=== PATIENT | male | born 1950 | race Caucasian/White ===

== ENCOUNTER 2019-02-18 22:17 | Observation (INO) | payer OTHER ==
[2019-02-18] MEDS ORDERED: NA CHLORIDE 0.9% 1,000 ML ONE (22:54)
[2019-02-18 23:03] LABS: Absolute Lymphocytes (CBC) 1.5 K/uL (0.7-4.9); Absolute Monocytes 0.6 K/uL (0.1-1.3); Absolute Neutrophil 4.5 K/uL (1.8-8.0); Basophils % 0.8 % (0-1.3); Eosinophils % 3.5 % (0-4.4); Hematocrit 39.1 % (39.6-49.0); Lymphocytes % 21.8 % (15.3-44.8); MPV 9.2 fL (7.6-11.3)
[2019-02-18 23:11] LABS: Urine Blood TRACE (NEG); Urine Glucose NEGATIVE (NEG); Urine Protein 3+ (NEG); Urine pH 6.5 (5.0-7.0)
[2019-02-18 23:34] LABS: ALT/SGPT 28 U/L (12-78); AST/SGOT 20 U/L (15-37); Albumin 3.9 g/dL (3.4-5.0); Alkaline Phosphatase 45 U/L (45-117); BUN Blood Urea Nitrogen 14 mg/dL (7-18); Bicarbonate 27 mmol/L (21-32); Bilirubin Direct 0.1 mg/dL (0-0.2); Bilirubin Total 0.5 mg/dL (0.2-1.0); Glucose Level 96 mg/dL (74-106); Lipase 67 U/L (73-393); Magnesium 1.5 mg/dL (1.8-2.4); NT PRO-BNP 525 pg/mL (<125); Potassium 3.2 mmol/L (3.5-5.1); Protein, Total 7.2 g/dL (6.4-8.2); Sodium Level 140 mmol/L (136-145); Troponin (Emerg Dept Use Only) < 0.02 ng/mL (0.0-0.045)
[2019-02-18] MEDS ORDERED: ASPIRIN EC 81 MG TAB PO ONE (23:38)
[2019-02-18] MEDS ORDERED: METOPROLOL TAR 25 MG TAB ONE (23:38)
[2019-02-18] MEDS ORDERED: FAMOTIDINE 20 MG/2 ML VIAL IV ONE (23:38)
--- NOTE | 2019-02-18 23:39 | ER ---
Nurse's Notes [facility] Name: Keven Rodriguez Age: 68 yrs Sex: Male : 1950 Arrival Date: 02/18/2019 Time: 22:[address] Private MD: Diagnosis: Chest pain, unspecified;Palpitations;Type 2 diabetes mellitus;Hypokalemia;Hypomagnesemia Presentation: 02/18 22:26 Presenting complaint: Patient states: for the past 4 days his HR has been elevated. aa1 States his pulse is normally in the 50's and it has recently been in the low 100's. Denies pain. States, "I can just feel my heart beating in my face.". Transition of care: patient was not received from another setting of care. Onset of symptoms was February 15, 2019. Risk Assessment: Do you want to hurt yourself or someone else? Patient reports no desire to harm self or others. Initial Sepsis Screen: Does the patient meet any 2 criteria? HR > 90 bpm. Does the patient have a suspected source of infection? No. Patient's initial sepsis screen is negative. Care prior to arrival: None. 22:26 Method Of Arrival: Ambulatory aa1 22:26 Acuity: JOSE 3 aa1 Triage Assessment: 22:35 General: Appears in no apparent distress. comfortable, Behavior is calm, cooperative, aa1 appropriate for age. Pain: Denies pain. Historical: - Allergies: 22:35 No Known Allergies; aa1 - Home Meds: 22:35 magnesium oxide 400 mg Oral tab daily [Active]; omeprazole 20 mg Oral TbEC daily aa1 [Active]; amlodipine 10 mg tab 1 tab once daily [Active]; losartan-hydrochlorothiazide 100-25 mg oral tab 1 tab once daily [Active]; hydralazine 10 mg Oral tab 1 tab 2 times per day [Active]; metformin 1,000 mg Oral tab 1 tab 2 times per day [Active]; Ferrous Gluconate Oral [Active]; aspirin 81 mg Oral TbEC 1 tab once daily [Active]; rosuvastatin 10 mg oral tab 1 tab once daily [Active]; metoprolol succinate 200 mg oral Tb24 1 tab once daily [Active]; Breo Ellipta 200-25 mcg/dose inhalation dsdv 1 puff once daily [Active]; - PMHx: 22:35 Diabetes - NIDDM; Hypertension; bladder cancer; aa1 - PSHx: 22:35 cystectomy w/urostomy; Heart stents; Appendectomy; aa1 - Immunization history:: Flu vaccine is up to date. - Social history:: Smoking status: Patient uses tobacco products, smokes one pack cigarettes per day. - Ebola Screening: : No symptoms or risks identified at this time. - Family history:: not pertinent. Screenin:39 Abuse screen: Denies threats or abuse. Nutritional screening: No deficits noted. tl2 Tuberculosis screening: No symptoms or risk factors identified. Fall Risk None identified. Assessment: 22:39 General: Appears in no apparent distress. comfortable, Behavior is calm, cooperative, tl2 appropriate for age. Pain: Denies pain. Neuro: Level of Consciousness is awake, alert, obeys commands, Oriented to person, place, time, situation. Cardiovascular: Reports palpitations, Denies chest pain, shortness of breath, Rhythm is sinus rhythm. Respiratory: Airway is patent Respiratory effort is even, unlabored, Respiratory pattern is regular, symmetrical. GI: No signs and/or symptoms were reported involving the gastrointestinal system. : urostomy placed, draining clear yellow urine. Derm: Skin is pink, warm \\T\\ dry. 02/19 00:00 Reassessment: Patient appears in no apparent distress at this time. No changes from tl2 previously documented assessment. Patient and/or family updated on plan of care and expected duration. Pain level reassessed. Patient is alert, oriented x 3, equal unlabored respirations, skin warm/dry/pink. 01:00 Reassessment: Patient appears in no apparent distress at this time. Patient and/or tl2 family updated on plan of care and expected duration. Pain level reassessed. Patient is alert, oriented x 3, equal unlabored respirations, skin warm/dry/pink. awaiting admission orders Patient denies pain at this time. 02:14 Reassessment: Patient appears in no apparent distress at this time. Patient and/or tl2 family updated on plan of care and expected duration. Pain level reassessed. Patient is alert, oriented x 3, equal unlabored respirations, skin warm/dry/pink. pt stable for transport to floor. Vital Signs: 02/18 22:35 BP 181 / 82; Pulse 97; Resp 18; Temp 97.5; Pulse Ox 96% ; Weight 112.49 kg; aa1 23:14 BP 143 / 66; Pulse 85; Resp 18; Pulse Ox 99% on R/A; tl2 02/19 01:00 BP 129 / 87; Pulse 77; Resp 20; Pulse Ox 96% on R/A; tl2 Vitals: 01:00 Cardiac Rhythm Assessment Sinus rhythm. tl2 ED Course: 02/18 22:19 Patient arrived in ED. aa1 22:20 Raciel Curiel MD is Attending Physician. ila 22:23 Mariely Morrissey RN is Primary Nurse. tl2 22:30 Triage completed. aa1 22:35 Arm band placed on right wrist. aa1 22:38 Inserted saline lock: 20 gauge in right antecubital area, using aseptic technique. tl2 Blood collected. 22:39 Patient has correct armband on for positive identification. Placed in gown. Bed in low tl2 position. Call light in reach. Side rails up X 1. Adult w/ patient. 22:43 XRAY Chest (1 view) In Process Unspecified. EDMS 22:44 X-ray completed. Portable x-ray completed in exam room. Patient tolerated procedure az well. 23:37 Kate Kothari MD is Hospitalizing Provider. [facility] 02/19 00:28 CT Aorta for Dissection In Process Unspecified. EDMS 02:14 No provider procedures requiring assistance completed. Patient admitted, IV remains in tl2 place. Administered Medications: 02/18 22:57 Drug: NS 0.9% 1000 ml Route: IV; Rate: 125 ml/hr; Site: right antecubital; tl2 02/19 02:15 Follow up: IV Status: Infusion continued upon admission tl2 02/18 23:30 Drug: Aspirin 162 mg Route: PO; tl2 02/19 02:15 Follow up: Response: No adverse reaction 2 02/18 23:30 Drug: Lopressor 25 mg Route: PO; tl2 02/19 02:15 Follow up: Response: No adverse reaction 2 02/18 23:30 Drug: Pepcid 20 mg Route: IVP; Site: right antecubital; tl2 02/19 02:16 Follow up: Response: No adverse reaction 2 00:29 Drug: Potassium Effervescent Tablet 25 mEq Route: PO; tl2 02:16 Follow up: Response: No adverse reaction tl2 00:29 Drug: Magnesium Sulfate 2 grams Route: IVPB; Infused Over: 2 hrs; Site: right tl2 antecubital; 02:16 Follow up: IV Status: Completed infusion; IV Intake: 50ml tl2 Intake: 02:16 IV: 50ml; Total: 50ml. tl2 Outcome: 02/18 23:39 Decision to Hospitalize by Provider. [facility] 02/19 02:14 Admitted to Tele accompanied by nurse, via wheelchair, room 425, with chart, Report tl2 called to SAIMA Solis Condition: stable Discharge instructions given to patient, Instructed on the need for admit. 02:16 Patient left the ED. tl2 Signatures: Dispatcher [employer] EDLashawn Lynne RN RN aa1 Raciel Curiel MD MD cha Knox, Taylor, RN RN tl2 Kanika Juares
--- NOTE | 2019-02-18 23:39 | EDPHYS ---
Physician Documentation [facility] Name: Keven Rodriguez Age: 68 yrs Sex: Male : 1950 Arrival Date: 02/18/2019 Time: 22:[address] Private MD: Raciel Dawson HPI: 02/18 23:20 This 68 yrs old Male presents to ER via Ambulatory with complaints of racing ila heart, palpitatiuons and chest pain. 23:20 The patient or guardian reports chest pain that is located primarily in the anterior ila chest wall. Onset: 5 day(s) ago. The patient presents with a history of heart racing. Context: The symptoms occur at rest. Onset: The symptoms/episode began/occurred 5 day(s) ago. Modifying factors: The symptoms are aggravated by nothing. The symptoms are alleviated by nothing. The pain does not radiate. Associated signs and symptoms: The patient has no apparent associated signs or symptoms. Historical: - Allergies: 22:35 No Known Allergies; aa1 - Home Meds: 22:35 magnesium oxide 400 mg Oral tab daily [Active]; omeprazole 20 mg Oral TbEC daily aa1 [Active]; amlodipine 10 mg tab 1 tab once daily [Active]; losartan-hydrochlorothiazide 100-25 mg oral tab 1 tab once daily [Active]; hydralazine 10 mg Oral tab 1 tab 2 times per day [Active]; metformin 1,000 mg Oral tab 1 tab 2 times per day [Active]; Ferrous Gluconate Oral [Active]; aspirin 81 mg Oral TbEC 1 tab once daily [Active]; rosuvastatin 10 mg oral tab 1 tab once daily [Active]; metoprolol succinate 200 mg oral Tb24 1 tab once daily [Active]; Breo Ellipta 200-25 mcg/dose inhalation dsdv 1 puff once daily [Active]; - PMHx: 22:35 Diabetes - NIDDM; Hypertension; bladder cancer; aa1 - PSHx: 22:35 cystectomy w/urostomy; Heart stents; Appendectomy; aa1 - Immunization history:: Flu vaccine is up to date. - Social history:: Smoking status: Patient uses tobacco products, smokes one pack cigarettes per day. - Ebola Screening: : No symptoms or risks identified at this time. - Family history:: not pertinent. ROS: 23:20 Constitutional: Negative for fever, chills, and weight loss, Eyes: Negative for injury, ila pain, redness, and discharge, ENT: Negative for injury, pain, and discharge, Neck: Negative for injury, pain, and swelling, Abdomen/GI: Negative for abdominal pain, nausea, vomiting, diarrhea, and constipation, Back: Negative for injury and pain, : Negative for injury, bleeding, discharge, and swelling, MS/Extremity: Negative for injury and deformity, Skin: Negative for injury, rash, and discoloration, Neuro: Negative for headache, weakness, numbness, tingling, and seizure, Psych: Negative for depression, anxiety, suicide ideation, homicidal ideation, and hallucinations, Allergy/Immunology: Negative for hives, rash, and allergies, Endocrine: Negative for neck swelling, polydipsia, polyuria, polyphagia, and marked weight changes, Hematologic/Lymphatic: Negative for swollen nodes, abnormal bleeding, and unusual bruising. 23:20 Cardiovascular: Positive for chest pain, palpitations. 23:20 Respiratory: Positive for cough, shortness of breath, at rest. Exam: 23:20 Constitutional: This is a well developed, well nourished patient who is awake, alert, ila and in no acute distress. Head/Face: Normocephalic, atraumatic. Eyes: Pupils equal round and reactive to light, extra-ocular motions intact. Lids and lashes normal. Conjunctiva and sclera are non-icteric and not injected. Cornea within normal limits. Periorbital areas with no swelling, redness, or edema. ENT: Nares patent. No nasal discharge, no septal abnormalities noted. Tympanic membranes are normal and external auditory canals are clear. Oropharynx with no redness, swelling, or masses, exudates, or evidence of obstruction, uvula midline. Mucous membranes moist. Neck: Trachea midline, no thyromegaly or masses palpated, and no cervical lymphadenopathy. Supple, full range of motion without nuchal rigidity, or vertebral point tenderness. No Meningismus. Chest/axilla: Normal chest wall appearance and motion. Nontender with no deformity. No lesions are appreciated. Cardiovascular: Regular rate and rhythm with a normal S1 and S2. No gallops, murmurs, or rubs. Normal PMI, no JVD. No pulse deficits. Abdomen/GI: Soft, non-tender, with normal bowel sounds. No distension or tympany. No guarding or rebound. No evidence of tenderness throughout. Back: No spinal tenderness. No costovertebral tenderness. Full range of motion. Male : Normal genitalia with no discharge or lesions. Skin: Warm, dry with normal turgor. Normal color with no rashes, no lesions, and no evidence of cellulitis. MS/ Extremity: Pulses equal, no cyanosis. Neurovascular intact. Full, normal range of motion. Neuro: Awake and alert, GCS 15, oriented to person, place, time, and situation. Cranial nerves II-XII grossly intact. Motor strength 5/5 in all extremities. Sensory grossly intact. Cerebellar exam normal. Normal gait. Psych: Awake, alert, with orientation to person, place and time. Behavior, mood, and affect are within normal limits. 23:20 Respiratory: the patient does not display signs of respiratory distress, Respirations: normal, Breath sounds: rhonchi, wheezing: expiratory is scattered. Vital Signs: 22:35 BP 181 / 82; Pulse 97; Resp 18; Temp 97.5; Pulse Ox 96% ; Weight 112.49 kg; aa1 23:14 BP 143 / 66; Pulse 85; Resp 18; Pulse Ox 99% on R/A; tl2 02/19 01:00 BP 129 / 87; Pulse 77; Resp 20; Pulse Ox 96% on R/A; tl2 MDM: 02/18 22:20 Patient medically screened. [facility] 23:22 Data reviewed: vital signs, nurses notes, lab test result(s), EKG, radiologic studies, [facility] CT scan, plain films. 02/18 22:21 Order name: Basic Metabolic Panel; Complete Time: 23:36 [facility] 02/18 22:21 Order name: CBC with Diff; Complete Time: 23:22 [facility] 02/18 22:21 Order name: LFT's; Complete Time: 23:36 [facility] 02/18 22:21 Order name: Magnesium; Complete Time: 23:36 [facility] 02/18 22:21 Order name: NT PRO-BNP; Complete Time: 23:36 [facility] 02/18 22:21 Order name: PT-INR; Complete Time: 23:22 [facility] 02/18 22:21 Order name: Troponin (emerg Dept Use Only); Complete Time: 23:36 [facility] 02/18 22:21 Order name: Lipase; Complete Time: 23:36 [facility] 02/18 22:21 Order name: TSH; Complete Time: 23:36 [facility] 02/18 22:21 Order name: Urine Culture [facility] 02/18 22:21 Order name: D-Dimer; Complete Time: 23:22 [facility] 02/18 23:09 Order name: Urine Dipstick--Ancillary (enter results) [facility] 02/19 01:07 Order name: Lipid Profile [facility] 02/19 01:07 Order name: Lipid Profile [facility] 02/18 22:21 Order name: XRAY Chest (1 view) [facility] 02/18 22:21 Order name: EKG; Complete Time: 22:22 [facility] 02/18 23:24 Order name: CT Aorta for Dissection [facility] 02/19 01:07 Order name: CONS Physician Consult [facility] 02/19 01:07 Order name: Heart Healthy [facility] 02/19 01:07 Order name: Echo with Doppler [facility] 02/19 01:07 Order name: EKG Electrocardiogram [facility] 02/19 01:07 Order name: Troponin I [facility] 02/19 01:07 Order name: Troponin I [facility] 02/19 01:07 Order name: Troponin I [facility] 02/18 22:21 Order name: Cardiac monitoring; Complete Time: 22:38 [facility] 02/18 22:21 Order name: EKG - Nurse/Tech; Complete Time: 22:38 [facility] 02/18 22:21 Order name: IV Saline Lock; Complete Time: 22:38 [facility] 02/18 22:21 Order name: Labs collected and sent; Complete Time: 22:38 [facility] 02/18 22:21 Order name: O2 Per Protocol; Complete Time: 22:38 [facility] 02/18 22:21 Order name: O2 Sat Monitoring; Complete Time: 22:38 [facility] 02/18 22:21 Order name: Urine Dipstick-Ancillary (obtain specimen); Complete Time: 22:38 [facility] 02/19 01:07 Order name: EKG Electrocardiogram [facility] Administered Medications: 22:57 Drug: NS 0.9% 1000 ml Route: IV; Rate: 125 ml/hr; Site: right antecubital; 02/19 02:15 Follow up: IV Status: Infusion continued upon admission 02/18 23:30 Drug: Aspirin 162 mg Route: PO; 02/19 02:15 Follow up: Response: No adverse reaction 2 02/18 23:30 Drug: Lopressor 25 mg Route: PO; tl2 02/19 02:15 Follow up: Response: No adverse reaction tl2 02/18 23:30 Drug: Pepcid 20 mg Route: IVP; Site: right antecubital; tl2 02/19 02:16 Follow up: Response: No adverse reaction tl2 00:29 Drug: Potassium Effervescent Tablet 25 mEq Route: PO; tl2 02:16 Follow up: Response: No adverse reaction tl2 00:29 Drug: Magnesium Sulfate 2 grams Route: IVPB; Infused Over: 2 hrs; Site: right tl2 antecubital; 02:16 Follow up: IV Status: Completed infusion; IV Intake: 50ml tl2 Disposition: 02/18/19 23:39 Hospitalization ordered by Kate Kothari for Observation. Preliminary diagnosis are Chest pain, unspecified, Palpitations, Type 2 diabetes mellitus, Hypokalemia, Hypomagnesemia. - Bed requested for Telemetry/MedSurg (observation). - Status is Observation. tl2 - Condition is Stable. - Problem is new. - Symptoms have improved. UTI on Admission? No Signatures: Dispatcher [employer] EDMS Madelyn Hudson RN RN Lashawn Calle RN RN aa1 Raciel Curiel MD MD cha Knox, Taylor, RN RN tl2 Corrections: (The following items were deleted from the chart) 01:11 02/18 23:39 Hospitalization Ordered by Kate Kothari MD for Observation. Preliminary mw diagnosis is Chest pain, unspecified; Palpitations; Type 2 diabetes mellitus; Hypokalemia; Hypomagnesemia. Bed requested for Telemetry/MedSurg (observation). Status is Observation. Condition is Stable. Problem is new. Symptoms have improved. UTI on Admission? No. ila 02/19 02:16 01:11 02/18/2019 23:39 Hospitalization Ordered by Kate Kothari MD for Observation. tl2 Preliminary diagnosis is Chest pain, unspecified; Palpitations; Type 2 diabetes mellitus; Hypokalemia; Hypomagnesemia. Bed requested for Telemetry/MedSurg (observation). Status is Observation. Condition is Stable. Problem is new. Symptoms have improved. UTI on Admission? No. mw
[2019-02-19] MEDS ORDERED: Magnesium Sulfate 2gm IVPB 2 G/50 ML BAG IV ONE (00:23)
[2019-02-19] MEDS ORDERED: POTASSIUM 25 MEQ EFFERV TAB ONE (00:23)
[2019-02-19] MEDS ORDERED: ALPRAZOLAM 0.25 MG TABLET PO PRN (01:03)
[2019-02-19] MEDS ORDERED: ACETAMINOPHEN 500 MG TAB PO PRN (01:03)
[2019-02-19] MEDS ORDERED: MORPHINE 4 MG/ML SYR IV PRN (01:03)
[2019-02-19 02:11] VITALS: BMI 33.9
[2019-02-19 06:45] LABS: Troponin I 0.02 ng/mL (0.0-0.045)
--- NOTE | 2019-02-19 07:42 | P.HP ---
Certification for Inpatient Patient admitted to: Observation With expected LOS: <2 Midnights Patient will require the following post-hospital care: None Practitioner: I am a practitioner with admitting privileges, knowledge of patient current condition, hospital course, and medical plan of care. Services: Services provided to patient in accordance with Admission requirements found in Title 42 Section 412.3 of the Code of Federal Regulations Patient History Date of Service: 02/19/19 Reason for admission: Palpitations History of Present Illness: Patient is a 68-year-old gentleman who came into the hospital with palpitations. This is biggest complaint. He does not really admit to having any chest pain. He has been taking Breo for a questionable diagnosis of COPD. Since he started Breo a couple weeks ago he has noticed over the last few days that his heart rate has been elevated in the 100s. He came into the hospital for further evaluation. Patient is doing well at this time. Heart rate is come down to what he states is normal for him in the 60s. He is a smoker but has never had any pulmonary function testing performed. The have the diagnosis COPD on a the medical record that he got from MD Curiel's. He is not exactly sure how they made the diagnosis. At this time he will be admitted for observation. Recommending holding the Breo until he follows up with a drywaller. Allergies No Known Allergies Allergy (Unverified 06/28/12 20:55) Home Medications: Rosuvastatin Calcium [Crestor] 10 mg PO BEDTIME 06/28/12 Metformin HCl [Glucophage*] 1,000 mg PO BEDTIME #0 tablet 06/30/12 Amlodipine [Norvasc] 10 mg PO DAILY 02/19/19 Aspirin 81 mg PO DAILY 02/19/19 Ferrous Gluconate 240 mg PO DAILY 02/19/19 Fluticasone/Vilanterol [Breo Ellipta 200-25 Mcg INH] 1 puff IH DAILY 02/19/19 Hydralazine [Apresoline*] 10 mg PO BID 02/19/19 Losartan/Hydrochlorothiazide [Losartan-Hctz 100-25 mg Tab] 1 each PO DAILY 02/19 Magnesium Oxide [Mag 0X Tab] 400 mg PO DAILY 02/19/19 Metoprolol Succinate [Toprol Xl] 200 mg PO DAILY 02/19/19 Omeprazole 20 mg PO DAILY 02/19/19 - Past Medical/Surgical History Has patient received pneumonia vaccine in the past: No Diabetic: Yes -: bladder cancer -: NIDDM -: HTN -: cystectomy/ urostomy -: heart stents -: appendectomy - Family History Father Family History: Reviewed- Non-Contributory - Social History Smoking Status: Current every day smoker Alcohol use: No CD- Drugs: No Caffeine use: Yes Place of Residence: Home Review of Systems 10-point ROS is otherwise unremarkable Physical Examination - Vital Signs Temperature: 98.1 F Blood Pressure: 143/71 Pulse: 66 Respirations: 18 Pulse Ox (%): 95 - Physical Exam General: Alert, In no apparent distress, Oriented x3 HEENT: Atraumatic, PERRLA, Mucous membr. moist/pink, EOMI, Sclerae nonicteric Neck: Supple, 2+ carotid pulse no bruit, No LAD, Without JVD or thyroid abnormality Respiratory: Clear to auscultation bilaterally, Normal air movement Cardiovascular: Regular rate/rhythm, Normal S1 S2, No murmurs Gastrointestinal: Normal bowel sounds, Soft and benign, Non-distended, No tenderness Musculoskeletal: No clubbing, No swelling, No tenderness Integumentary: No rashes Neurological: Normal gait, Normal speech, Normal strength at 5/5 x4 extr, Normal tone, Sensation intact, Cranial nerves 3-12 intact, Normal affect Lymphatics: No axilla or inguinal lymphadenopathy - Studies Laboratory Data (last 24 hrs) 02/18/19 22:40: PT 11.8, INR 1.00 02/18/19 22:40: WBC 6.9, Hgb 13.4 L, Hct 39.1 L, Plt Count 161 02/18/19 22:40: Sodium 140, Potassium 3.2 L, BUN 14, Creatinine 1.19, Glucose 96 , Magnesium 1.5 L, Total Bilirubin 0.5, AST 20, ALT 28, Alkaline Phosphatase 45 , Lipase 67 L Assessment & Plan - Problems (Diagnosis) (1) Palpitations Current Visit: Yes Status: Acute (2) Adverse effect of predominantly beta-adrenoreceptor agonist Current Visit: Yes Status: Acute (3) History of coronary artery disease Current Visit: Yes Status: Acute (4) Tobacco use Current Visit: Yes Status: Acute - Plan Plan: 1. Gentle hydration 2. Monitor heart rate on telemetry 3. Hold Breo 4. Cardiology consultation 5. GI and DVT prophylax Discharge Plan: Home Plan to discharge in: 24 Hours - Advance Directives Does patient have a Living Will: Yes Does patient have a Durable POA for Healthcare: Yes - Code Status/Comfort Care Code Status Assessed: Yes Code Status: Full Code Critical Care: No Time Spent Managing PTS Care (In Minutes): 40
[2019-02-19] MEDS ORDERED: PNEUMOCOCCAL VACCINE 0.5 ML IMVAC ONE (08:00)
[2019-02-19 08:13] VITALS: BP 151/73; TEMP 98.5
--- NOTE | 2019-02-19 08:53 | P.DS ---
Discharge Date: 02/19/19 Disposition: ROUTINE DISCHARGE Discharge Condition: GOOD Reason for Admission: Palpitations Consultations: cardiology - Problems (1) Palpitations Current Visit: Yes Status: Acute (2) Adverse effect of predominantly beta-adrenoreceptor agonist Current Visit: Yes Status: Acute (3) History of coronary artery disease Current Visit: Yes Status: Acute (4) Tobacco use Current Visit: Yes Status: Acute Brief History of Present Illness: Patient is a 68-year-old gentleman who came into the hospital with palpitations. This is biggest complaint. He does not really admit to having any chest pain. He has been taking Breo for a questionable diagnosis of COPD. Since he started Breo a couple weeks ago he has noticed over the last few days that his heart rate has been elevated in the 100s. He came into the hospital for further evaluation. Patient is doing well at this time. Heart rate is come down to what he states is normal for him in the 60s. He is a smoker but has never had any pulmonary function testing performed. The have the diagnosis COPD on a the medical record that he got from MD [facility]. He is not exactly sure how they made the diagnosis. At this time he will be admitted for observation. Recommending holding the Breo until he follows up with a boot repairer. Hospital Course: Cardiology agreeable for discharge. Will hold Breo and hydralazine for risk of tachycardia. Follow-up with Cardiology, pulmonary, and PCP in 1-2 weeks Vital Signs/Physical Exam: Temp Pulse Resp BP Pulse Ox 98.5 F 61 19 151/73 H 94 02/19/19 08:00 02/19/19 08:00 02/19/19 08:00 02/19/19 08:00 02/19/19 08:00 General: Alert, In no apparent distress, Oriented x3 Laboratory Data at Discharge: WBC 6.9 K/uL (4.3-10.9) 02/18/19 22:40 Hgb 13.4 g/dL (13.6-17.9) L 02/18/19 22:40 Hct 39.1 % (39.6-49.0) L 02/18/19 22:40 Plt Count 161 K/uL (152-406) 02/18/19 22:40 PT 11.8 SECONDS (9.5-12.5) 02/18/19 22:40 INR 1.00 02/18/19 22:40 Sodium 140 mmol/L (136-145) 02/18/19 22:40 Potassium 3.2 mmol/L (3.5-5.1) L 02/18/19 22:40 BUN 14 mg/dL (7-18) 02/18/19 22:40 Creatinine 1.19 mg/dL (0.55-1.3) 02/18/19 22:40 Glucose 96 mg/dL (74-106) 02/18/19 22:40 Magnesium 1.5 mg/dL (1.8-2.4) L 02/18/19 22:40 Total Bilirubin 0.5 mg/dL (0.2-1.0) 02/18/19 22:40 AST 20 U/L (15-37) 02/18/19 22:40 ALT 28 U/L (12-78) 02/18/19 22:40 Alkaline Phosphatase 45 U/L (45-117) 02/18/19 22:40 Troponin I 0.02 ng/mL (0.0-0.045) 02/19/19 06:10 Triglycerides 86 mg/dL (<150) 02/19/19 06:10 Cholesterol 108 mg/dL (<200) 02/19/19 06:10 HDL Cholesterol 43 mg/dL (40-60) 02/19/19 06:10 Cholesterol/HDL Ratio 2.51 02/19/19 06:10 Lipase 67 U/L (73-393) L 02/18/19 22:40 Home Medications: Rosuvastatin Calcium [Crestor] 10 mg PO BEDTIME 06/28/12 Metformin HCl [Glucophage*] 1,000 mg PO BEDTIME #0 tablet 06/30/12 Amlodipine [Norvasc*] 10 mg PO DAILY 02/19/19 Aspirin 81 mg PO DAILY 02/19/19 Ferrous Gluconate 240 mg PO DAILY 02/19/19 Losartan/Hydrochlorothiazide [Losartan-Hctz 100-25 mg Tab] 1 each PO DAILY 02/19 Magnesium Oxide [Mag 0X*] 400 mg PO DAILY 02/19/19 Metoprolol Succinate [Toprol Xl] 200 mg PO DAILY 02/19/19 Omeprazole 20 mg PO DAILY 02/19/19 Patient Discharge Instructions: OK TO DC IV AND DC HOME. FOLLOW-UP WITH PRIMARY CARE PROVIDER IN 1-2 WEEKS. FOLLOW-UP WITH CARDIOLOGY IN 1-2 WEEKS. FOLLOW-UP WITH Pulmonary IN 1-2 WEEKS. RETURN TO THE ER IF symptoms worsens. CALL DR. SEGURA AT [phone] IF ANY QUESTIONS REGARDING HOSPITAL STAY. PLEASE CALL THE FLOOR AT [phone] IF ANY MEDICATION OR NURSING QUESTIONS. Diet: AHA Activity: Fall precautions Time spent managing pt's care (in minutes): 15
[2019-02-19] MEDS ORDERED: METOPROLOL TAR 50 MG TAB PO SCH (09:00)
[2019-02-19] MEDS ORDERED: AMLODIPINE 10 MG TAB PO SCH (09:00)
[2019-02-19] MEDS ORDERED: ENOXAPARIN 40 MG/0.4 ML SQ SCH (09:00)
[2019-02-19] MEDS ORDERED: HOME MED 1 EA UNK (Losartan/Hydrochlorothiazide [Losartan-Hctz 100-25 Mg Tab] 1 EACH) PO SCH (09:00)
[2019-02-19] MEDS ORDERED: ASPIRIN EC 81 MG TAB PO SCH (09:00)
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
[2019-02-19] MEDS ORDERED: METOPROLOL XL 100 MG TAB PO SCH (10:00)
[2019-02-19 10:05] VITALS: O2SAT 94
--- NOTE | 2019-02-19 10:28 | RAD REPORT ---
EXAM DESCRIPTION: RAD - Chest Single View - 02/18/2019 10:42 pm CLINICAL HISTORY: COUGH Chest pain. COMPARISON: CHEST SINGLE VIEW dated 08/11/2015; CHEST PA AND LAT 2 VIEW dated 12/02/2010; CHEST PA AND LAT 2 VIEW dated 02/16/2008; CHEST PA AND LAT 2 VIEW dated 05/01/2003 FINDINGS: Portable technique limits examination quality. Emphysematous changes are present throughout the lungs. No focal infiltrate is evident. The heart is normal in size. No displaced fractures. IMPRESSION: COPD.
[2019-02-19] MEDS ORDERED: ROSUVASTATIN 10 MG TAB PO SCH (21:00)
[2019-02-20] MEDS ORDERED: LOSARTAN/HCTZ 50-12.5 PO SCH (09:00)
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
== END 2019-02-19 09:19 | disposition home or self-care (01) ==
LOC: ER 22:17 → ERHOLD 02-19 01:03 → 4TH 02-19 01:30
PROVIDERS: ADMIT Family Medicine; ATTEND Hospitalist
DX: R00.2 Palpitations (principal); T50.995A Adverse effect of other drugs, medicaments and biological substances, initial encounter; Y92.009 Unspecified place in unspecified non-institutional (private) residence as the place of occurrence of the external cause; I25.10 Atherosclerotic heart disease of native coronary artery without angina pectoris; F17.210 Nicotine dependence, cigarettes, uncomplicated
CPT/HCPCS: 96365; 96361; 87088; 85025; 87086; 80048; 36415; 83735; 85610; 80061; 82962; 85379; 80076; 84443; 81003; 84484 ×2; 83690; 83880; 71275; 74175; 71045; 96375; 99285; 96366; Q9967; J3475; J7030; G0378 ×2; J1650

== ENCOUNTER 2019-04-24 16:22 | Emergency (ER) | payer OTHER ==
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
[2019-04-24] MEDS ORDERED: SILVER SULFADIAZINE 1% 25 GM TOP ONE (18:04)
[2019-04-24 18:16] VITALS: BP 147/69; TEMP 97.6; O2SAT 99
== END 2019-04-24 18:06 | disposition home or self-care (01) ==
LOC: ER 16:22
DX: T25.222A Burn of second degree of left foot, initial encounter (principal); T25.221A Burn of second degree of right foot, initial encounter; T31.0 Burns involving less than 10% of body surface; X11.8XXA Contact with other hot tap-water, initial encounter; Y93.G3 Activity, cooking and baking; E11.9 Type 2 diabetes mellitus without complications; F17.210 Nicotine dependence, cigarettes, uncomplicated; Z79.84 Long term (current) use of oral hypoglycemic drugs; Z79.82 Long term (current) use of aspirin
CPT/HCPCS: 99283